=== PATIENT | male | born 1990 | race Caucasian/White ===

== ENCOUNTER → 2019-02-13 | Outpatient (CLI) | payer BC ==
[2019-02-13 16:55] LABS: EOS # 0.2 (0.04-0.40); EOS % 2.3 % (0.0-4.0); HEMATOCRIT 47.5 % (42.0-52.0); HEMOGLOBIN 15.5 g/dL (13.5-18.0); LYMPH# 1.9 (1.50-4.00); MEAN CELL VOLUME 84 fl (78-100); MEAN CORPUSCULAR HEMOGLOBIN 28 pg (27-31); MEAN CORPUSCULAR HGB CONC 33 g/dL (33-37); MONO # 0.8 (0.20-0.80); NEU # 5.8 (1.40-6.50); PLATELET COUNT 229 K/mm3 (130-400); RED BLOOD COUNT 5.63 M/mm3 (4.20-5.60); RED CELL DISTRIBUTION WIDTH 13.4 % (11.5-14.5); WHITE BLOOD COUNT 8.8 K/mm3 (4.8-10.8)
[2019-02-13 19:29] LABS: ALBUMIN 3.8 g/dL (3.5-5.0); POTASSIUM 3.9 mmol/L (3.5-5.1)
[2019-02-13 19:30] LABS: CALCIUM 9.4 mg/dL (8.3-10.5)
[2019-02-13 19:31] LABS: TOTAL PROTEIN 6.8 g/dL (6.4-8.3)
[2019-02-13 19:33] LABS: TOTAL BILIRUBIN 0.4 mg/dL (0.2-1.2)
[2019-02-13 20:24] LABS: PH-URINE 6.5 (5.0 - 8.0); URINE APPEARANCE CLEAR; URINE BILIRUBIN NEGATIVE (NEGATIVE); URINE BLOOD NEGATIVE (NEGATIVE); URINE COLOR YELLOW; URINE GLUCOSE NEGATIVE (NEGATIVE); URINE KETONE NEGATIVE (NEGATIVE); URINE LEUKOCYTE ESTERASE NEGATIVE (NEGATIVE); URINE NITRATE NEGATIVE (NEGATIVE); URINE PROTEIN(semi-quant) NEGATIVE (NEGATIVE); URINE UROBILINOGEN NORMAL (NORMAL); URINE WBC 0-1 /hpf (0-3)
== END ==
LOC: LAB 16:20
PROVIDERS: Family Medicine
DX: E16.2 Hypoglycemia, unspecified (principal); R55 Syncope and collapse; F90.9 Attention-deficit hyperactivity disorder, unspecified type

== ENCOUNTER → 2020-09-04 | Outpatient (CLI) | payer SELFPAY ==
[2020-09-04 12:17] LABS: ALBUMIN 4.2 g/dL (3.5-5.0); POTASSIUM 4.2 mmol/L (3.5-5.1)
[2020-09-04 12:18] LABS: CALCIUM 8.7 mg/dL (8.3-10.5)
[2020-09-04 12:20] LABS: TOTAL PROTEIN 7.1 g/dL (6.4-8.3)
[2020-09-04 12:21] LABS: TOTAL BILIRUBIN 0.6 mg/dL (0.2-1.2)
[2020-09-05 00:58] LABS: INSULIN 8 uIU/mL (2-23)
== END ==
LOC: LAB 11:26
PROVIDERS: Family Medicine
DX: E04.1 Nontoxic single thyroid nodule (principal); E16.2 Hypoglycemia, unspecified

== ENCOUNTER → 2020-09-06 | Outpatient (CLI) | payer SELFPAY | LOC: RAD 09:15 | DX: R10.11 Right upper quadrant pain (principal); E04.1 Nontoxic single thyroid nodule ==

== ENCOUNTER → 2021-12-16 | Outpatient (CLI) | payer OTHER | LOC: LAB 08:50 | DX: Z13.220 Encounter for screening for lipoid disorders (principal); F90.2 Attention-deficit hyperactivity disorder, combined type; J30.9 Allergic rhinitis, unspecified ==

== ENCOUNTER → 2021-12-29 | Outpatient (CLI) | payer OTHER ==
[2021-12-29 11:05] LABS: ALBUMIN 4.1 g/dL (3.5-5.0)
[2021-12-29 11:08] LABS: TOTAL PROTEIN 6.4 g/dL (6.4-8.3)
[2021-12-29 11:10] LABS: TOTAL BILIRUBIN 1.6 mg/dL (0.2-1.2)
[2021-12-29 11:14] LABS: DIRECT BILIRUBIN 0.5 mg/dL (0.0-0.5)
== END ==
LOC: LAB 10:12
PROVIDERS: Family Medicine
DX: R10.9 Unspecified abdominal pain (principal)

== ENCOUNTER → 2022-03-27 | Outpatient (CLI) | payer OTHER | LOC: LAB 16:22 | DX: R10.9 Unspecified abdominal pain (principal) ==

== ENCOUNTER 2023-08-12 19:04 | Emergency (ER) | payer SELFPAY ==
[~2023-08-12] VITALS: Ht 175.3 cm; Wt 84.1 kg
[2023-08-12] MEDS ORDERED: PRILOSEC 20MG20 MG PO (19:25)
[2023-08-12] MEDS ORDERED: LIBRAX CAPSULE1 EACH PO (19:25)
[2023-08-12] MEDS ORDERED: PHENERGAN 25 TA25 MG PO (19:27)
[2023-08-12 19:54] LABS: URINE WBC 0 /hpf (0-3)
[2023-08-12 20:05] LABS: BASO # 0.04 K/mm3 (0.02-0.10); EOS # 0.08 K/mm3 (0.04-0.40); EOS % 0.6 % (0.0-4.0); HEMATOCRIT 47.5 % (42.0-52.0); HEMOGLOBIN 16.4 g/dL (13.5-18.0); LYMPH# 1.27 K/mm3 (1.50-4.00); MEAN CELL VOLUME 82 fl (78-100); MEAN CORPUSCULAR HEMOGLOBIN 28 pg (27-31); MEAN CORPUSCULAR HGB CONC 35 g/dL (33-37); MEAN PLATELET VOLUME 9.5 fl (7.4-10.4); MONO # 0.73 K/mm3 (0.20-0.80); NEU # 11.11 K/mm3 (1.40-6.50); PLATELET COUNT 248 K/mm3 (130-400); RED BLOOD COUNT 5.83 M/mm3 (4.20-5.60); RED CELL DISTRIBUTION WIDTH 11.9 % (11.5-14.5); WHITE BLOOD COUNT 13.3 K/mm3 (4.8-10.8)
[2023-08-12 20:07] LABS: ALBUMIN 4.4 g/dL (3.5-5.0)
[2023-08-12 20:08] LABS: CALCIUM 9.5 mg/dL (8.3-10.5)
[2023-08-12 20:09] LABS: TOTAL PROTEIN 7.2 g/dL (6.4-8.3)
[2023-08-12 20:11] LABS: TOTAL BILIRUBIN 1.3 mg/dL (0.2-1.2)
[2023-08-12 21:30] LABS: URINE APPEARANCE CLEAR (CLEAR); URINE COLOR YELLOW (YELLOW); URINE PROTEIN(semi-quant) TRACE (NEGATIVE)
[2023-08-12 21:31] LABS: URINE BILIRUBIN NEGATIVE (NEGATIVE); URINE BLOOD NEGATIVE (NEGATIVE); URINE GLUCOSE NEGATIVE (NEGATIVE); URINE KETONE 1+ (NEGATIVE); URINE LEUKOCYTE ESTERASE NEGATIVE (NEGATIVE); URINE MUCUS PRESENT (NOT PRESENT); URINE NITRATE NEGATIVE (NEGATIVE)
[2023-08-12] MEDS ORDERED: AUGMENTIN 500-1 EACH PO (23:33)
[2023-08-12] MEDS ORDERED: ZOFRAN ODT4 MG PO (23:33)
[2023-08-12] MEDS ORDERED: NORCO 325 MG-51 TA1 PO (23:37)
[2023-08-12 23:57] VITALS: BP 140/76
== END 2023-08-12 23:57 | disposition home or self-care (01) ==
LOC: ED 19:04
PROVIDERS: Physician Assistant
DX: R10.11 Right upper quadrant pain (principal); R11.2 Nausea with vomiting, unspecified; D72.829 Elevated white blood cell count, unspecified; E80.7 Disorder of bilirubin metabolism, unspecified; Z90.49 Acquired absence of other specified parts of digestive tract
CPT/HCPCS: J0696; J2405; J3010; J7030; Q9967